=== PATIENT | male | born 1965 ===

== ENCOUNTER 2017-08-21 02:26 | Emergency (ER) | payer SELFPAY ==
[2017-08-21 03:00] VITALS: TEMP 98.9; O2SAT 99
[2017-08-21] MEDS ORDERED: Sodium Chloride 0.9% 1,000 ML IV ONE (03:58)
--- NOTE | 2017-08-21 03:58 | C.PDOC ---
History Of Present Illness pt found on street with strong alcohol on breath and abrasion to right forehead. Pt states he might have fallen, but has no recollection. Denies any pain at the present time. Time Seen by Provider: 08/21/17 03:58 Chief Complaint (Nursing): Headache History Per: Patient, EMS Onset/Duration Of Symptoms: Hrs Current Symptoms Are (Timing): Still Present Severity: Mild Pain Scale Rating Of: 3 Quality: Dull Preceeding Symptoms: None Associated Symptoms: denies: Photophobia Recent travel outside of the [place]: No Additional History Per: Patient Past Medical History Reviewed: Historical Data, Nursing Documentation, Vital Signs Vital Signs: Last Vital Signs Temp 98.9 F 08/21/17 02:52 Pulse 78 08/21/17 02:52 Resp 20 08/21/17 02:52 BP Pulse Ox 99 08/21/17 04:23 - Medical History PMH: HTN Family History: States: No Known Family Hx - Social History Hx Alcohol Use: Yes Hx Substance Use: No - Immunization History Hx Tetanus Toxoid Vaccination: Yes Hx Influenza Vaccination: Yes Hx Pneumococcal Vaccination: Yes Review Of Systems Constitutional: Negative for: Fever, Chills Eyes: Negative for: Redness Cardiovascular: Negative for: Chest Pain Respiratory: Negative for: Shortness of Breath Gastrointestinal: Negative for: Abdominal Pain Musculoskeletal: Negative for: Back Pain Skin: Positive for: Rash Neurological: Negative for: Weakness Psych: Negative for: Anxiety Physical Exam - Physical Exam Appears: Non-toxic Skin: Warm, Dry, Other (abrassion forehead) Head: Normacephalic, Abrasion (forehead) Eye(s): bilateral: Normal Inspection Oral Mucosa: Moist Neck: Trachea Midline, No Paracervical Tenderness, Supple Chest: Symmetrical Cardiovascular: Rhythm Regular Respiratory: No Rales, No Rhonchi, No Wheezing Gastrointestinal/Abdominal: Soft, No Tenderness Extremity: Normal ROM Neurological/Psych: Oriented x3, Normal Speech Gait: Unsteady ED Course And Treatment O2 Sat by Pulse Oximetry: 99 Pulse Ox Interpretation: Normal Progress Note: pt's family came and picked him up , assuming responsibility for his well being. Reevaluation Time: 05:27 Reassessment Condition: Improved Disposition Counseled Patient/Family Regarding: Studies Performed, Diagnosis, Need For Followup - Disposition Referrals: [facility] [Outside] Disposition: HOME/ ROUTINE Disposition Time: 03:58 Condition: FAIR Instructions: Alcohol Intoxication (DC), Abrasion (ED) Forms: [employer] (Romanian) Print Language: TAMAZIGHT - Clinical Impression Clinical Impression: Alcohol intoxication, Fall, Forehead abrasion
[2017-08-21] MEDS ORDERED: Tdap Vaccine 0.5 ml Vial (10-64 yrs) IM ONE (03:59)
--- NOTE | 2017-08-21 05:37 | CT ---
EXAM: CT Head Without Intravenous Contrast CLINICAL HISTORY: 51 years old, male; Pain; Headache and other: Fall TECHNIQUE: Axial computed tomography images of the head/brain without intravenous contrast. All CT scans at this facility use one or more dose reduction techniques, viz.: automated exposure control; ma/kV adjustment per patient size (including targeted exams where dose is matched to indication; i.e. head); or iterative reconstruction technique. Coronal and sagittal reformatted images were created and reviewed. COMPARISON: No relevant prior studies available. FINDINGS: Brain: No intracranial hemorrhage. No mass. No edema. Ventricles: No hydrocephalus. Bones/joints: No calvarial fracture. Soft tissues: Mild scalp swelling. Mastoid air cells: No mastoid effusion. IMPRESSION: 1. No intracranial hemorrhage. 2. See facial bone CT report for additional details.
--- NOTE | 2017-08-21 05:39 | CT ---
EXAM: CT Maxillofacial Without Intravenous Contrast CLINICAL HISTORY: 51 years old, male; Pain; Eye pain and face pain; Bilateral; Additional info: Fall TECHNIQUE: Axial computed tomography images of the face without intravenous contrast. All CT scans at this facility use one or more dose reduction techniques, viz.: automated exposure control; ma/kV adjustment per patient size (including targeted exams where dose is matched to indication; i.e. head); or iterative reconstruction technique. Coronal and sagittal reformatted images were created and reviewed. COMPARISON: CT - HEAD W/O CONTRAST 2017-08-21 04:46 FINDINGS: Bones/joints: Degenerative changes of cervical spine. No acute fracture. Soft tissues: Minimal facial soft tissue swelling. Orbits: Unremarkable as visualized. Sinuses: Scattered minimal mucosal thickening. No air-fluid levels. Dental: Few periapical lucencies compatible with dental disease. IMPRESSION: 1. No fracture. 2. Incidental/non-acute findings are described above.
[2017-08-21 05:52] VITALS: BP 128/72; PULSE 82; RESP 16
== END 2017-08-21 05:30 | disposition home or self-care (01) ==
LOC: C.ER 02:26
DX: S00.81XA Abrasion of other part of head, initial encounter (principal); W18.30XA Fall on same level, unspecified, initial encounter; F10.129 Alcohol abuse with intoxication, unspecified; Y90.9 Presence of alcohol in blood, level not specified